=== PATIENT | female | born 1965 | race Caucasian/White ===

== ENCOUNTER → 2022-04-17 10:03 | Outpatient (BNVA) | payer MEDICAID, SELFPAY | PROVIDERS: PCP Family Medicine; Referring Provider Nurse Practitioner Family; Visit Provider Podiatrist Foot & Ankle Surgery | DX: M20.41 Other hammer toe(s) (acquired), right foot (principal); Q82.8 Other specified congenital malformations of skin; L60.0 Ingrowing nail; M20.40 Other hammer toe(s) (acquired), unspecified foot; L60.8 Other nail disorders; E11.42 Type 2 diabetes mellitus with diabetic polyneuropathy; M21.621 Bunionette of right foot; M21.41 Flat foot [pes planus] (acquired), right foot; M21.622 Bunionette of left foot; M21.42 Flat foot [pes planus] (acquired), left foot | CPT/HCPCS: 17110; 99203; 99204 ==

== ENCOUNTER → 2022-08-26 09:14 | Outpatient (BNVA) | payer MEDICAID, SELFPAY | PROVIDERS: PCP Family Medicine; Visit Provider Podiatrist Foot & Ankle Surgery | DX: E11.42 Type 2 diabetes mellitus with diabetic polyneuropathy (principal); M20.41 Other hammer toe(s) (acquired), right foot; M20.42 Other hammer toe(s) (acquired), left foot; L60.8 Other nail disorders; M21.621 Bunionette of right foot; M21.622 Bunionette of left foot; M21.41 Flat foot [pes planus] (acquired), right foot; M21.42 Flat foot [pes planus] (acquired), left foot | CPT/HCPCS: 11721 ==

== ENCOUNTER → 2022-12-02 09:01 | Outpatient (BNVA) | payer MEDICAID, SELFPAY | PROVIDERS: PCP Family Medicine; Visit Provider Podiatrist Foot & Ankle Surgery | DX: E11.42 Type 2 diabetes mellitus with diabetic polyneuropathy (principal); M20.41 Other hammer toe(s) (acquired), right foot; M20.42 Other hammer toe(s) (acquired), left foot; L60.8 Other nail disorders; M21.621 Bunionette of right foot; M21.622 Bunionette of left foot; M21.41 Flat foot [pes planus] (acquired), right foot; M21.42 Flat foot [pes planus] (acquired), left foot; M21.611 Bunion of right foot; M21.612 Bunion of left foot | CPT/HCPCS: 99214 ==

== ENCOUNTER → 2023-03-12 12:41 | Outpatient (BNVA) | payer MEDICAID, SELFPAY | PROVIDERS: PCP Family Medicine; Visit Provider Podiatrist Foot & Ankle Surgery | DX: E11.42 Type 2 diabetes mellitus with diabetic polyneuropathy (principal); L60.8 Other nail disorders; M20.41 Other hammer toe(s) (acquired), right foot; M20.42 Other hammer toe(s) (acquired), left foot; M21.621 Bunionette of right foot; M21.622 Bunionette of left foot; M21.41 Flat foot [pes planus] (acquired), right foot; M21.42 Flat foot [pes planus] (acquired), left foot; M21.611 Bunion of right foot; M21.612 Bunion of left foot | CPT/HCPCS: 11721 ==

== ENCOUNTER → 2024-10-04 14:41 | Outpatient (BNVA) | payer MEDICAID, MEDICARE, SELFPAY | PROVIDERS: PCP Family Medicine; Visit Provider Podiatrist Foot & Ankle Surgery | DX: E11.42 Type 2 diabetes mellitus with diabetic polyneuropathy (principal); L60.8 Other nail disorders; I73.9 Peripheral vascular disease, unspecified | CPT/HCPCS: 11721 ==

== ENCOUNTER → 2025-01-03 08:56 | Outpatient (BNVA) | payer MEDICARE, MEDICAID, SELFPAY | PROVIDERS: PCP Family Medicine; Visit Provider Podiatrist Foot & Ankle Surgery | DX: E11.42 Type 2 diabetes mellitus with diabetic polyneuropathy (principal); L60.8 Other nail disorders; I73.9 Peripheral vascular disease, unspecified; M21.621 Bunionette of right foot; M21.622 Bunionette of left foot; M21.41 Flat foot [pes planus] (acquired), right foot; M21.42 Flat foot [pes planus] (acquired), left foot; M21.611 Bunion of right foot; M21.612 Bunion of left foot | CPT/HCPCS: 11721; 99213 ==

== ENCOUNTER → 2025-04-04 09:18 | Outpatient (BNVA) | payer OTHER, MEDICAID, SELFPAY | PROVIDERS: PCP Family Medicine; Visit Provider Podiatrist Foot & Ankle Surgery | DX: E11.42 Type 2 diabetes mellitus with diabetic polyneuropathy (principal); L60.8 Other nail disorders; E11.8 Type 2 diabetes mellitus with unspecified complications; I73.9 Peripheral vascular disease, unspecified; M21.621 Bunionette of right foot; M21.622 Bunionette of left foot; M21.41 Flat foot [pes planus] (acquired), right foot; M21.42 Flat foot [pes planus] (acquired), left foot; M21.611 Bunion of right foot; M21.612 Bunion of left foot | CPT/HCPCS: 11721; 99213 ==

== ENCOUNTER → 2025-07-04 09:20 | Outpatient (BNVA) | payer OTHER, MEDICAID, SELFPAY | PROVIDERS: PCP Family Medicine; Visit Provider Podiatrist Foot & Ankle Surgery | DX: E11.42 Type 2 diabetes mellitus with diabetic polyneuropathy (principal); L60.8 Other nail disorders; E11.8 Type 2 diabetes mellitus with unspecified complications; I73.9 Peripheral vascular disease, unspecified; M21.621 Bunionette of right foot; M21.622 Bunionette of left foot; M21.41 Flat foot [pes planus] (acquired), right foot; M21.42 Flat foot [pes planus] (acquired), left foot; M21.611 Bunion of right foot; M21.612 Bunion of left foot | CPT/HCPCS: 11721 ==